=== PATIENT | male | born 1960 | race Caucasian/White ===

== ENCOUNTER 2021-02-04 08:41 | Day surgery (SDC) | payer OTHER, SELFPAY ==
[2021-01-30 10:27] VITALS: BMI 37.9
--- NOTE | 2021-02-03 10:22 | P.CONAN_ITS ---
Documented by User: Janette Souza 02/03/21 10:23 HPI - Anesthesia Eval Consult details Narrative: 60yo M for Colonoscopy [facility] Past Medical History Medical History No pertinent past medical history Surgical History Surgical History H/O colonoscopy History of surgery on arm Hx of appendectomy Social History Social History Patient Tobacco Use Status: Never used Tobacco Use of substances other than those prescribed or required for medical reasons: No Are you DNR?: No Advance Directives: No Advance Directives Information Provided: Yes Meds Allergies Allergy/AdvReac Type Severity Reaction Status Date / Time Penicillins Allergy Unknown Unknown Verified 02/04/21 09:34 Home Medications Medication Instructions Recorded Confirmed Last Taken Type ibuprofen 01/30/21 01/30/21 Unknown History sildenafil 1 tab PO DAILY PRN 01/30/21 01/30/21 Unknown History Exam Exam Date and Time: February 03, 2021 1022 Height,Weight and Vital Signs: Height 5 ft 9 in Weight 116.573 kg Assessment and Plan Assessment Anesthesia Assessment: Chart Reviewed Documented by User: Wong Senior 02/04/21 09:51 [facility] Past Medical History Medical History No pertinent past medical history Surgical History Surgical History H/O colonoscopy History of surgery on arm Hx of appendectomy Social History Social History Patient Tobacco Use Status: Never used Tobacco Use of substances other than those prescribed or required for medical reasons: No Are you DNR?: No Advance Directives: No Advance Directives Information Provided: Yes Meds Allergies Allergy/AdvReac Type Severity Reaction Status Date / Time Penicillins Allergy Unknown Unknown Verified 02/04/21 09:34 Home Medications Medication Instructions Recorded Confirmed Last Taken Type ibuprofen 01/30/21 01/30/21 Unknown History sildenafil 1 tab PO DAILY PRN 01/30/21 01/30/21 Unknown History Exam Airway Mallampati Class: III TM Dist: >3cm Neck ROM: Full Denture: Upper and Lower Heart: [id number] Lungs: cta b/l Assessment and Plan Assessment Anesthesia Assessment: Anesthesia Plan Discussed, PAT Visit and Chart Reviewed Final Anesthetic Review NPO: Yes ASA Class: II Final Preanesthetic Review: No Changes in Pt Med Stat, Meds/Allgs Chart Revie wed, Consent Obtained/Reviewed and Anes Risks/Benef Reviewed Patient Risk: Low Procedure Risk: Low Assessment/Block/Sedation in SS: Assess/Block/Sedation-SS Anesthetic Plan Anesthetic Plan: MAC: and Agree w/ Assess. and Plan Disposition: Standard PACU
[2021-02-04 09:44] VITALS: BP 132/73; PULSE 60; RESP 16; TEMP 36.4; O2SAT 97; BMI 36.4
[2021-02-04] MEDS: Lactated Ringers 1,000 ML 100 ML IVCONT (09:55)
--- NOTE | 2021-02-04 10:12 | MHC.SHP ---
Pre-Procedural Eval Section A Date of Service: 02/04/21 The patient is an INPATIENT: No Changes since office visit: No Cold of Flu in the past 2 weeks, No New Medical Problems, No Changes in Medication and No Patient answered all questions The History & Physical has been completed within 30 days and I have reviewed it.: Yes Section B Chief Complaint: screening Allergies: Allergies Allergy/AdvReac Type Severity Reaction Status Date / Time Penicillins Allergy Unknown Unknown Verified 02/04/21 09:34 Plan I have reviewed the history and physical and performed a pertinent physical examination on my patient. No changes have occurred unless specified.
[2021-02-04 10:41] VITALS: BP 107/60; PULSE 63; RESP 18; TEMP 36.1; O2SAT 96
--- NOTE | 2021-02-04 10:41 | PM.OP ---
Brief Operative Note Date of Service: 02/04/21 Pre-op diagnosis: screening Post-op diagnosis: same (colon polyps) Procedure: colonoscopy Surgeon: Eyad Goldberg Anesthesia: MAC Was an [employer] used for this Procedure?: No Estimated blood loss (mL): 5 Pathology: other (polyps) Condition: stable Disposition: PACU
[2021-02-04 10:51] VITALS: BP 123/78; PULSE 68; RESP 18; TEMP 36.2; O2SAT 98
--- NOTE | 2021-02-04 11:14 | OP_ITS ---
SURGEON: Eayd Goldberg MD INDICATIONS: Colon cancer screening and prior history of adenomatous colon polyps. PREOPERATIVE DIAGNOSIS: POSTOPERATIVE DIAGNOSIS: PROCEDURE PERFORMED: ESTIMATED BLOOD LOSS: COMPLICATIONS: ANESTHESIA: Monitored anesthesia care. ASSISTANTS: SPECIMENS: PROCEDURES PERFORMED: Colonoscopy to the terminal ileum, biopsy, and snare polypectomy. DESCRIPTION OF PROCEDURE: History and physical was performed. The risks and benefits of the procedure were explained to the patient. Informed consent was obtained. The patient was placed in a left lateral decubitus position. A digital rectal exam was performed and was found to be normal. The Olympus pediatric video colonoscope was introduced into the rectum and advanced to the cecum without difficulty. The cecum was identified by transillumination, palpation, and identification of the ileocecal valve. Examination was performed and the scope was removed. He tolerated the procedure well and was returned to the recovery area in stable condition. FINDINGS: The terminal ileum was normal. The visualized colonic mucosa was within normal limits without evidence of masses or ulcers. Four polyps were identified and removed. The first was located at 80 cm and was removed with biopsy forceps. The second was located at 25 cm and was removed with a snare and recovered with biopsy forceps. Final two were in the rectum noted on retroflexed examination. These were removed with biopsy forceps. All polyps were less than 10 mm. There was mild sigmoid diverticulosis. The quality of the prep was good. Internal hemorrhoids noted on retroflexed examination. IMPRESSION: Colon polyps. RECOMMENDATIONS: Followup the biopsy results. MD CANELO Buitrago/PRISCILLA / [id number]
== END 2021-02-04 11:26 | disposition home or self-care (01) ==
PROVIDERS: Visit Provider Internal Medicine Gastroenterology
PROC: 0DJD8ZZ Inspection of Lower Intestinal Tract, Via Natural or Artificial Opening Endoscopic (ICD-10-PCS; CPT 45378; principal; 2021-02-04 10:20)
DX: Z12.11 Encounter for screening for malignant neoplasm of colon (principal); Z86.010 Personal history of colon polyps; K63.5 Polyp of colon; K62.1 Rectal polyp; K57.30 Diverticulosis of large intestine without perforation or abscess without bleeding; K64.8 Other hemorrhoids; Z79.899 Other long term (current) drug therapy; Z88.0 Allergy status to penicillin
CPT/HCPCS: 45385; 45380; 88305